=== PATIENT | female | born 1960 | race Caucasian/White ===

== ENCOUNTER → 2016-07-25 | Outpatient (CLI) | payer BC | END | disposition home or self-care (01) | LOC: RAD 18:06 | DX: M79.605 Pain in left leg (principal) | CPT/HCPCS: 93971 ==

== ENCOUNTER 2017-08-10 05:42 | Day surgery (SDC) | payer BC ==
[~2017-08-10] VITALS: Ht 175.3 cm; Wt 92.5 kg
[~2017-08-10 05:42] MED LIST: MOTRIN IB200 MG PO
[2017-08-10 06:58] VITALS: BP 145/72
[2017-08-10 08:30] VITALS: BP 132/75
[2017-08-10 09:10] VITALS: BP 130/66
== END 2017-08-10 09:20 | disposition home or self-care (01) ==
LOC: SDC 05:42
PROC: 0UBC7ZX Excision of Cervix, Via Natural or Artificial Opening, Diagnostic (ICD-10-PCS; principal; 2017-08-10)
DX: N87.0 Mild cervical dysplasia (principal); Z88.0 Allergy status to penicillin; Z88.2 Allergy status to sulfonamides
CPT/HCPCS: 88307; J0330; J1100; J2250; J2405; J3010